=== PATIENT | male | born 1950 | race African-American/Black ===

== ENCOUNTER → 2018-12-01 | Outpatient (CLI) | payer OTHER ==
--- NOTE | 2018-12-01 10:29 | 2DMMODE ---
[facility] [address] [place] [address] 2 D/M-MODE ECHOCARDIOGRAM Name: NAKITA JEFFERSON Room #: REG CL [facility]#: [id number] ������������� Admission: 12/01/18 ������������� Attend Phys: Keo Bush MD Discharge: ��� ������������� ��� Date of : 54 Date of Service: 12/01/18 1029 �� Report #: [id number] �������� ��������������������������������������������[id number] THIS REPORT FOR: //name// APPROVED REPORT Study performed: 12/01/2018 09:31:25 EXAM: Comprehensive 2D, Doppler, and color-flow Echocardiogram Patient Location: Out-Patient Room #: Echo lab 2 Status: routine BSA: 2.13 HR: 70 bpm BP: 140/86 mmHg Rhythm: NSR Other Information Study Quality: Good Risk Factors: Cardiac Risk Factors: Hyperlipidemia Indications Hypertension/HDD 2D Dimensions RVDd: 36.84 mm IVSd: 11.72 (7-11mm) LVOT Diam: 22.85 (18-24mm) LVDd: 47.17 mm PWd: 12.32 (7-11mm) Ascending Ao: 31.29 (22-36mm) LVDs: 32.08 (25-40mm) Aortic Root: 25.86 mm IVC: 15.00 mm Volumes Left Atrial Volume (Systole) Single Plane 4CH: 38.74 mL Single Plane 2CH: 49.71 mL LA ESV Index: 24.00 mL/m2 Aortic Valve AoV Peak Tanvir.: 1.19 m/s AO Peak Gr.: 5.62 mmHg LVOT Max P.57 mmHg LVOT Max V: 1.07 m/s ANNETTA Vmax: 3.70 cm2 [facility] [address] [address] 2 D/M-MODE ECHOCARDIOGRAM Name: NAKITA JEFFERSON Room #: REG CL [facility]#: [id number] ������������� Admission: 12/01/18 ������������� Attend Phys: Keo Bush MD Discharge: ��� ������������� ��� Date of : 54 Date of Service: 12/01/18 1029 �� Report #: [id number] �������� ��������������������������������������������[id number] Mitral Valve E/A Ratio: 0.7 MV Decel. Time: 203.35 ms MV E Max Tanvir.: 0.58 m/s MV A Tanvir.: 0.81 m/s MV PHT: 58.97 ms IVRT: 129.18 ms Pulmonary Valve PV Peak Tanvir.: 0.97 m/s PV Peak Gr.: 3.79 mmHg Pulmonary Vein P Vein S: 0.56 m/s P Vein A: 0.32 m/s P Vein D: 0.33 m/s P Vein A Dur.: 133.8 msec P Vein S/D Ratio: 1.70 Left Ventricle The left ventricle is normal size. Mild concentric left ventricular hypertrophy. The left ventricular systolic function is normal. The left ventricular ejection fraction is within the normal range. LVEF is 55-60%. Grade I - abnormal relaxation pattern. Right Ventricle The right ventricle is normal size. The right ventricular systolic function is normal. Atria The left atrium size is normal. The right atrium size is normal. Aortic Valve The aortic valve is normal in structure. Trace aortic regurgitation. There is no aortic valvular stenosis. Mitral Valve The mitral valve is normal in structure. Trace to mild mitral regurgitation. No evidence of mitral valve stenosis. Tricuspid Valve The tricuspid valve is normal in structure. There is no tricuspid valve regurgitation noted. Pulmonic Valve The pulmonary valve is normal in structure. Trace pulmonic regurgitation. [facility] [address] [address] 2 D/M-MODE ECHOCARDIOGRAM Name: NAKITA JEFFERSON Room #: REG CL [facility]#: [id number] ������������� Admission: 12/01/18 ������������� Attend Phys: Keo Bush MD Discharge: ��� ������������� ��� Date of : 54 Date of Service: 12/01/18 1029 �� Report #: [id number] �������� ��������������������������������������������[id number] Great Vessels The aortic root is normal in size. IVC is normal in size and collapses >50% with inspiration. Pericardium There is no pericardial effusion. <Conclusion> The left ventricle is normal size. LVEF is 55-60%. The aortic valve is normal in structure. Trace aortic regurgitation. The mitral valve is normal in structure. Trace to mild mitral regurgitation. The tricuspid valve is normal in structure. The pulmonary valve is normal in structure. Trace pulmonic regurgitation. There is no pericardial effusion. ��������������������������������������������� <ELECTRONICALLY SIGNED> ���������������������������������������� By: Rodney Gasca MD ��������������������������������������������� 12/01/18 1029 1029 1029 Rodney Gasca MD /INF
[2018-12-01 10:40] LABS: URINE BILIRUBIN NEGATIVE (Negative); URINE BLOOD NEGATIVE (Negative); URINE CLARITY CLEAR; URINE COLOR YELLOW; URINE GLUCOSE-RANDOM* NEGATIVE (Negative); URINE KETONES NEGATIVE (Negative); URINE LEUKOCYTES NEGATIVE (Negative); URINE NITRITE NEGATIVE (Negative); URINE PROTEIN (DIPSTICK) NEGATIVE (Negative); URINE UROBILINOGEN 0.2 E.U./dl (0.2-1.0)
[2018-12-01 10:54] LABS: CALCIUM 9.3 mg/dL (8.5-10.1); CREATININE 1.4 mg/dL (0.7-1.3); POTASSIUM 4.3 mmol/L (3.5-5.1); TOTAL BILIRUBIN 0.4 mg/dL (<0.1-1.0); TOTAL PROTEIN 7.3 g/dL (6.4-8.2)
== END ==
LOC: CV 07:18
PROVIDERS: Orthopaedic Surgery
DX: I13.0 Hypertensive heart and chronic kidney disease with heart failure and stage 1 through stage 4 chronic kidney disease, or unspecified chronic kidney disease (principal); I50.9 Heart failure, unspecified; N18.2 Chronic kidney disease, stage 2 (mild); E78.5 Hyperlipidemia, unspecified